=== PATIENT | male | born 1995 | race Caucasian/White ===

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

== ENCOUNTER 2017-08-29 22:03 | Emergency (ER) | payer OTHER ==
[2017-08-29 22:19] VITALS: BP 127/77; PULSE 80; RESP 16; TEMP 98.6; O2SAT 100
--- NOTE | 2017-08-29 22:38 | ED PDOC ---
HPI: Male Pain Time Seen by Provider: 08/29/17 22:24 Chief Complaint (Nursing): Male Genitourinary Chief Complaint (Provider): dysuria History Per: Patient History/Exam Limitations: no limitations Onset/Duration Of Symptoms: Days (2) Current Symptoms Are (Timing): Still Present Quality Of Discomfort: Burning, "Pain" Additional Complaint(s): 22 y/o male presents for evaluation of dysuria x 2 days. Associated white discharge noted in urine. Denies fever, nausea/vomiting, abdominal pain, back pain, penile pain, testicular pain/swelling. Patient states he has not been sexually active in over two months, no reason to suspect STD. Past Medical History Reviewed: Historical Data, Nursing Documentation, Vital Signs Vital Signs: Last Vital Signs Temp 98.6 F 08/29/17 22:16 Pulse 80 08/29/17 22:16 Resp 16 08/29/17 22:16 BP 127/77 08/29/17 22:16 Pulse Ox 100 08/29/17 22:16 - Medical History PMH: No Chronic Diseases - Surgical History Surgical History: No Surg Hx - Family History Family History: States: Unknown Family Hx - Home Medications Home Medications: Ambulatory Orders Medication Instructions Recorded Ciprofloxacin HCl [Cipro] 500 mg PO BID #9 tab 08/29/17 Phenazopyridine HCl [Pyridium] 100 mg PO TID PRN #5 tab 08/29/17 - Allergies Allergies/Adverse Reactions: Allergies Allergy/AdvReac Type Severity Reaction Status Date / Time No Known Allergies Allergy Verified 08/29/17 22:16 Review of Systems ROS Statement: Except As Marked, All Systems Reviewed And Found Negative Genitourinary Male: Positive for: Dysuria, Penile Discharge Physical Exam - Reviewed Nursing Documentation Reviewed: Yes Vital Signs Reviewed: Yes - Physical Exam Appears: Positive for: Well, Non-toxic, No Acute Distress Head Exam: Positive for: ATRAUMATIC, NORMAL INSPECTION, NORMOCEPHALIC Skin: Positive for: Normal Color Eye Exam: Positive for: Normal appearance ENT: Positive for: Normal ENT Inspection Cardiovascular/Chest: Positive for: Regular Rate, Rhythm Respiratory: Positive for: Normal Breath Sounds Gastrointestinal/Abdominal: Positive for: Normal Exam. 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 Negative for: scrotum tenderness (R), scrotum tenderness (L) , testicular tenderness (R), testicular tenderness (L), urethral discharge Back: Positive for: Normal Inspection. Negative for: L CVA Tenderness, R CVA Tenderness Extremity: Positive for: Normal ROM Neurologic/Psych: Positive for: Alert, Oriented - ECG O2 Sat by Pulse Oximetry: 100 - Progress ED Course And Treament: ibuprofen udip, u/a, ucs, gh/chlamydia Patient educated on findings, discharged with rx Cipro, Pyridium (doses given in ED) Advised fluids. Follow up PMD 2-3 days. Return precautions given Disposition - Clinical Impression Clinical Impression: Urinary tract infection - Patient ED Disposition Is Patient to be Admitted: No Counseled Patient/Family Regarding: Studies Performed, Diagnosis, Need For Followup, Rx Given - Disposition Disposition: Routine/Home Disposition Time: 23:39 Condition: IMPROVED Prescriptions: Ciprofloxacin HCl [Cipro] 500 mg PO BID #9 tab Phenazopyridine HCl [Pyridium] 100 mg PO TID PRN #5 tab PRN Reason: Urinary Discomt Instructions: Urinary Tract Infections in Adults Forms: [facility] (Greenlandic)
[2017-08-29 22:52] LABS: SQUAMOUS EPITHIAL < 1 /hpf (0-5); URINE BACTERIA RARE (<OCC); URINE BILIRUBIN NEGATIVE (NEGATIVE); URINE BLOOD NEGATIVE (NEGATIVE); URINE CLARITY CLOUDY (Clear); URINE COLOR YELLOW (YELLOW); URINE GLUCOSE (UA) NEG (Normal); URINE LEUKOCYTE ESTERASE SMALL Leu/uL (Negative); URINE PROTEIN 30 mg/dL (NEGATIVE)
== END 2017-08-29 23:58 | disposition home or self-care (01) ==
LOC: H.ER 22:03
DX: N39.0 Urinary tract infection, site not specified (principal)

== ENCOUNTER 2017-09-02 11:22 | Emergency (ER) | payer OTHER ==
[2017-09-02 11:44] VITALS: BMI 25.8
[2017-09-02 11:49] VITALS: O2SAT 98
[2017-09-02] MEDS ORDERED: cefTRIAXone (Rocephin) 250 mg Inj IM ONE (12:08)
[2017-09-02] MEDS ORDERED: cefTRIAXone (Rocephin) 250 mg Inj ONE (12:15)
--- NOTE | 2017-09-02 12:22 | ED PDOC ---
HPI: Male Pain Time Seen by Provider: 09/02/17 11:45 Chief Complaint (Nursing): Abdominal Pain History Per: Patient Additional Complaint(s): Pt. states he was asked to come into ED today as he tested positive for Gonorrhea. Currently c/o dysuria and white penile discharge. Denies fever, back pain, flank pain, hematuria, incontinence, abdominal pain, pelvic pain, testicular pain. Past Medical History Reviewed: Historical Data, Nursing Documentation, Vital Signs Vital Signs: Last Vital Signs Temp 98.1 F 09/02/17 11:38 Pulse 62 09/02/17 11:38 Resp 18 09/02/17 11:38 BP 115/73 09/02/17 11:38 Pulse Ox 98 09/02/17 11:47 - Medical History Other PMH: Herpes - Family History Family History: States: No Known Family Hx - Home Medications Home Medications: Ambulatory Orders Medication Instructions Recorded Ciprofloxacin HCl [Cipro] 500 mg PO BID #9 tab 08/29/17 Phenazopyridine HCl [Pyridium] 100 mg PO TID PRN #5 tab 08/29/17 Doxycycline Hyclate [Doryx] 100 mg PO BID #14 cap 09/02/17 - Allergies Allergies/Adverse Reactions: Allergies Allergy/AdvReac Type Severity Reaction Status Date / Time No Known Allergies Allergy Verified 09/02/17 11:47 Review of Systems ROS Statement: Except As Marked, All Systems Reviewed And Found Negative Physical Exam - Physical Exam Appears: Positive for: Well, Non-toxic, No Acute Distress Skin: Positive for: Normal Color, Warm. Negative for: Rash Eye Exam: Positive for: Normal appearance. Negative for: Conjunctival injection (b/l) Gastrointestinal/Abdominal: Positive for: Normal Exam, Soft. Negative for: Tenderness Back: Positive for: Normal Inspection. Negative for: L CVA Tenderness, R CVA Tenderness Neurologic/Psych: Positive for: Alert, Oriented - ECG O2 Sat by Pulse Oximetry: 98 - Progress ED Course And Treament: Rocephin 250mg IM, zithromax 1gm PO ordered. Instructed to inform sexual partners of diagnosis and to refrain from sexual activity until cleared. Disposition - Clinical Impression Clinical Impression: Gonorrhea - Patient ED Disposition Is Patient to be Admitted: No - Disposition Referrals: [facility] [Outside] [facility] [Outside] Disposition: Routine/Home Disposition Time: 12:10 Condition: STABLE Prescriptions: Doxycycline Hyclate [Doryx] 100 mg PO BID #14 cap Instructions: Gonorrhea (DC), Sexually-Transmitted Diseases (DC) Forms: [employer] [facility] (Paraguayan)
[2017-09-02 13:03] VITALS: BP 128/76; PULSE 78; RESP 19; TEMP 97
== END 2017-09-02 13:04 | disposition home or self-care (01) ==
LOC: H.ER 11:22
DX: A54.9 Gonococcal infection, unspecified (principal)
CPT/HCPCS: 96372; 99283; J0696